=== PATIENT | female | born 2000 | race Caucasian/White ===

== ENCOUNTER 2023-07-25 17:55 | Emergency (ER) | payer OTHER, SELFPAY ==
--- NOTE | ~2023-07-25 | XR_ITS ---
EXAMINATION: XR FINGER, LEFT CLINICAL INFORMATION: Pain COMPARISON: None available. TECHNIQUE: Three views of the left thumb. FINDINGS: Nondisplaced fracture of the tuft of the distal phalanx of the first digit. No dislocation. No other focal lesion. XR/XR finger LT min 2V IMPRESSION: Nondisplaced fracture of the tuft of the distal phalanx first digit.
[2023-07-25 18:39] VITALS: BP 129/79; PULSE 98; RESP 16; TEMP 36.4; O2SAT 98; BMI 30.7
[2023-07-25 21:30] VITALS: BP 130/78; PULSE 90; RESP 18; TEMP 36.6; O2SAT 98
--- NOTE | 2023-07-25 21:35 | ED.EXTPRO ---
HPI - Extremity Problem General Chief complaint: Extremity Injury, Upper Stated complaint: slammed finger in car door Time Seen by Provider: 07/25/23 21:19 Source: patient and RN notes reviewed Mode of arrival: ambulatory Limitations: no limitations History of Present Illness HPI Narrative: 22 year old right hand dominant female with no significant pmhx presents to the ED for evaluation of left thumb pain after closing her thumb in her car door one week ago. She immediately noted pain/ swelling to the distal left thumb. Over the last week she has had increased pressure along with blood under her left thumb nail. She presents requesting removal of blood. Endorses full ROM of left thumb. Denies numbness/tingling/weakness of the extremity. Denies pain to any other finger/ hand/ wrist. No other concerns. Related Data Previous Rx's ?Medication ?Instructions ?Recorded cephalexin 500 mg capsule 500 mg PO BID 5 days #10 caps 07/25/23 Allergies Allergy/AdvReac Type Severity Reaction Status Date / Time No Known Allergies Allergy Verified 07/25/23 18:41 Review of Systems Review of Systems: Constitutional: No fever, chills, fatigue, night sweats, weight changes ENT/Mouth: No ear pain, hearing loss, nasal congestion, sinus pain, rhinorrhea, sore throat Eyes: No eye pain, swelling, redness, vision changes, discharge Cardio: No chest pain, palpitations, BLUNT, orthopnea, peripheral edema Pulm: No SOB, cough, sputum, wheezing, dyspnea, hemoptysis GI: No nausea, vomiting, hematemesis, abdominal pain, diarrhea, constipation, hematochezia, melena : No irregular bleeding, dysuria, frequency, urgency, hesitancy, hematuria, flank pain, urinary flow changes, urinary incontinence or retention MSK: No back pain, neck pain, joint pain, myalgias, +thumb pain Skin: No lesions, rashes Neuro: No weakness, numbness, paresthesias, LOC, dizziness, headache Psych: No anxiety/panic, depression, SI/HI, AH/VH All other systems reviewed and are negative. [facility] Past Medical History Attestation statement: The following information was validated with the patient. Source: old records reviewed and nursing notes reviewed Physical Exam Vital Signs: Vital Signs: Last Vital Signs Temp 98 F 07/25/23 21:30 Pulse 90 07/25/23 21:30 Resp 18 04/13/24 21:30 BP 130/78 07/25/23 21:30 Pulse Ox 98 07/25/23 21:30 O2 Del Method Room Air 07/25/23 21:30 BMI result Body Mass Index 30.7 Vital signs stable Const: General: cooperative, healthy appearing, comfortable and no acute distress Orientation/consciousness: patient oriented x3 Limitations: no limitations HEENT: Head: Yes normal to inspection, Yes No palpable skull fracture present, Yes normocephalic and Yes atraumatic Eyes: General: appearance normal, both eyes and all related structures Pupils: Equal, round and reactive pupils present Resp: Effort & Inspection: normal respiratory effort and able to speak in complete sentences Cardio: Rate: regular rate Rhythm: regular rhythm Neuro: General: patient oriented x3 Cranial nerves: Yes Equal, round and reactive pupils present Extrem: Other: + refer to image below + subungual hematoma noted to left 1st digit with surrounding swelling. Nail bed intact. Full ROM to left 1st digit intact. Course Course Course Narrative: 2155-- nail trephination of left 1st digit performed. Small amount of blood relieved from under the nail. As 1 week has gone by, a majority of the blood underneath the nail had coagulated. Will place patient on Keflex for infection prophylaxis. Finger splint placed with DIP in extension. Advised patient to keep this on for 2-4 weeks. Patient has remained stable throughout ED visit today. Discussed worrisome signs and symptoms and when to return to the ED. All questions answered at this time. Patient is agreeable with disposition and stable for discharge. Medical Decision Making Medical Decision Making MDM Narrative: 22 year old female with no significant pmhx presents to the ED for evaluation of left thumb pain after closing her thumb in her car door one week ago. Vital signs stable. Afebrile. She is nontoxic-appearing and in no acute distress. Please refer to physical exam portion for findings. Differential diagnosis includes subungual hematoma, fracture, nail bed injury, contusion. Plan for x-rays and re-evaluation. Differential Diagnosis Differential Diagnoses: The differential diagnosis associated with the presentation includes As above Admission/Observation Not indicated Independent Interpretation I performed an independent interpretation of an: Plain X-Ray Interpretation: On x-ray there is fracture of the distal left 1st digit, agree with radiologist's interpretation. Radiology Impression Discussion of test interpretation with radiology: I have reviewed the radiologist's reading. Radiologist Impression: EXAMINATION: XR FINGER, LEFT CLINICAL INFORMATION: Pain COMPARISON: None available. TECHNIQUE: Three views of the left thumb. FINDINGS: Nondisplaced fracture of the tuft of the distal phalanx of the first digit. No dislocation. No other focal lesion. XR/XR finger LT min 2V IMPRESSION: Nondisplaced fracture of the tuft of the distal phalanx first digit. Prescription Management I considered prescription management with: Pain Medication and Antibiotic (Keflex) Procedures Nail Trephination Time out: Yes Location (finger): left and thumb Sterile prep: betadine Method of drainage: nail cautery Procedure successful: Yes Patient tolerated procedure: No Complications Orthopedic Splinting/Casting Injury #1: Side: left Upper Extremity Injury Location: finger (thumb) Upper Extremity Immobilizer: finger (other) Discharge Plan Discharge Clinical Impression: Subungual hematoma of finger, Closed fracture of tuft of distal phalanx of finger Patient Disposition: Home, Self-Care Instructions: Finger Fracture (ED), Splint Care (ED) Additional Instructions: You were seen in the ED for crush injury to your left thumb. As discussed, xrays show a nondisplaced fracture of the tuft of the distal phalanx first digit (fracture of the tip of your finger). The hematoma of your nail was drained. You were provided with a finger splint. Keep this clean, dry, and intact. Keep this applied for 2-4 weeks to aid in healing. Keflex is an antibiotic that has been sent to your pharmacy. Take this over the next 5 days to prevent infection. You may take Tylenol and ibuprofen at home for pain/discomfort. Follow up with PCP. If you do not have a PCP, a referral has been provided to you. You may call them to make an appointment. Return to the ED with new or worsening symptoms. In the case of an emergency call 911. Prescriptions: New cephalexin 500 mg capsule 500 mg PO BID 5 Days Qty: 10 0RF Referrals: [facility] [place] Family Medicine [Provider Group] [facility] [place] [facility] [Provider Group] [facility] [place] [facility] [Provider Group] Stand Alone Forms: Work/School Release
[2023-07-25 22:01] VITALS: BP 128/76; PULSE 86; RESP 18; TEMP 36.6; O2SAT 98
== END 2023-07-25 22:02 | disposition home or self-care (01) ==
LOC: HO.ED 21:56
PROVIDERS: Emergency Provider Emergency Medicine
DX: S62.522A Displaced fracture of distal phalanx of left thumb, initial encounter for closed fracture (principal); S60.012A Contusion of left thumb without damage to nail, initial encounter; M79.642 Pain in left hand; Y29.XXXA Contact with blunt object, undetermined intent, initial encounter; Y93.89 Activity, other specified; Y92.810 Car as the place of occurrence of the external cause; Y99.8 Other external cause status
CPT/HCPCS: 29130; 73140; 99283; 99284

== ENCOUNTER 2025-02-17 15:43 | Emergency (ER) | payer SELFPAY ==
--- NOTE | ~2025-02-17 | CT_ITS ---
CLINICAL HISTORY: right lower molar pain CT soft tissue neck with contrast Comparison: None provided Findings: The visualized intracranial contents are unremarkable. No prevertebral fluid. Epiglottis is within normal limits. Pharyngeal mucosal space and parapharyngeal fat are normal. Diffuse inflammatory changes along the submental and right submandibular spaces, with subcutaneous reticulation and fluid stranding thickening of the platysma bilaterally. Diffuse cervical lymphadenopathy is likely reactive. Asymmetric edema in the right submandibular gland suggesting sialadenitis no obstructing stone identified. No suspicious thyroid nodules. No consolidation at the lung apices. No acute fractures. Minimal periapical lucency noted in the right mandibular 3rd molar tooth in keeping with periodontal disease. IMPRESSION: 1. Small odontogenic abscess right mandibular 3rd molar tooth. 2. Right-sided submandibular sialadenitis with regional inflammatory changes throughout the submental and submandibular spaces of the neck. 3. Reactive cervical lymphadenopathy. This document has been electronically signed by: Homer Vigil MD on 02/17/2025 19:57:04
[2025-02-17 15:56] VITALS: BP 129/80; PULSE 97; RESP 16; TEMP 36.6; O2SAT 99; BMI 39.8
--- NOTE | 2025-02-17 15:59 | ED.GENADULT ---
HPI - General Adult General Chief complaint: Dental/Oral Stated complaint: ?Tooth infection/R sided facial swelling Time Seen by Provider: 02/17/25 17:20 History of Present Illness HPI narrative: Patient is a 24-year-old female with a history of having lower molar pain. Ongoing for days. Worse on the right lower molar area. Patient went to see a dentist 2 days ago. Only moderate amount of pain at that time. Patient's pain has worsened. Claims that now she has a hard time eating due to the pain in her molar area. Had some swelling to the lower jaw. Came to the ED for help. No difficulty breathing. No difficulty with her voice. Pain on swallowing. Related Data Previous Rx's ?Medication ?Instructions ?Recorded cephalexin 500 mg capsule 500 mg PO BID 5 days #10 caps 07/25/23 amoxicillin 875 mg-potassium 1 tab PO BID 7 days #14 tabs 02/17/25 clavulanate 125 mg tablet ibuprofen 400 mg tablet 400 mg PO Q6H PRN pain #20 tabs 02/17/25 oxycodone 5 mg tablet 5 mg PO Q8H PRN pain #7 tabs 02/17/25 Allergies Allergy/AdvReac Type Severity Reaction Status Date / Time No Known Allergies Allergy Verified 02/17/25 16:02 Review of Systems Review of Systems: Positive pain to the right lower molar area PMFSH Past Medical History Attestation statement: The following information was validated with the patient. Social History Social History Smoked in Last 30 Days: No Use of substances other than those prescribed or required for medical reasons: Yes Substance Use Type: Marijuana Substance Use Frequency: Occasionally Advance Directives: No Advance Directives Information Provided: No Physical Exam ED Exam Exam: Appearance: Alert. Oriented X3. No acute distress. Eyes: Pupils equal, round and reactive to light. ENT: Pharynx normal. Posterior pharynx is normal. There is mild swelling to the angle of the right mandible. Mild tenderness to palpation. There is no fluctuance noted on palpation. No cavities noted. The floor of the mouth was soft. The upper jaw was normal. Neck: Normal inspection. Neck supple. No lymph nodes noted. No crepitus CVS: Normal heart rate and rhythm. Pulses normal. Normal S1 and S2 Respiratory: No respiratory distress. Breath sounds normal. No Wheezing. No rales Abdomen: Soft and nontender. No rigidity. No distention. good BS x4 Skin: Skin warm and dry. Normal skin color. Normal skin turgor. Extremities: No lower extremity edema. Neurovascular intact to all extremities. No Lacerations. No Rash Neuro: Oriented X 3. No motor deficit. No sensory deficit. Moving all extermities. No slurred speech Vital Signs: Vital Signs - 24 hr 02/17/25 15:56 Temperature 97.9 F Pulse Rate 97 Respiratory Rate 16 Blood Pressure 129/80 Pulse Oximetry 99 Oxygen Delivery Method Room Air BMI result Body Mass Index 39.8 Course Course Course Narrative: This is an RME: Additional HPI, ROS, PE not included below will be deferred to primary provider. RME assessment and note performed by: Bernadette Montana PA-C This is a 21-mwry-fez-female who presents to the ER with complaints of right sided facial pain and swelling. Patient reports that she developed right lower dental pain 4 days ago, went to a dentist and was told that they could not prescribe anything. She states that the pain is worsening. She states that she is having a hard time eating, she is unable to fully open her jaw secondary to the pain. She does have swelling and induration noted to the right side of her face extending into her right submandibular region, given this, labs, further ER evaluation needed. Medications Administered Discontinued Medications Generic Name Dose Route Start Last Admin Trade Name Freq PRN Reason Stop Dose Admin Dexamethasone Sodium Phosphate 10 mg 02/17/25 17:53 02/17/25 18:13 Dexamethasone Sod Phosphate 10 Mg/Ml Vial IVPUSH 02/17/25 17:54 10 mg ONCE ONE Administration Clindamycin Phosphate 600 mg in 50 mls @ 100 mls/hr 02/17/25 17:53 02/17/25 18:15 Cleocin IV 02/17/25 18:22 100 mls/hr ONCE ONE Administration Iohexol 100 ml 02/17/25 19:01 02/17/25 19:01 Iohexol 350 Mg/Ml 100 Ml Infus..Btl IV 02/17/25 19:02 60 ml ONCE ONE Administration Ketorolac Tromethamine 15 mg 02/17/25 17:53 02/17/25 18:12 Ketorolac Tromethamine 15 Mg/Ml Vial IVPUSH 02/17/25 17:54 15 mg ONCE ONE Administration Medical Decision Making Medical Decision Making [facility] Narrative: Significant swelling to the angle of the right mandible. Mild tenderness to touch. Posterior pharynx appearance normal. There is no airway compromise. CT scan of the neck was done. Positive for having a salivary gland infection and also a molar abscess. Will need dentist to a follow-up with the abscess on the lower molar. Augmentin was prescribed. Patient is also to follow-up with ENT for the salivary gland infection. Currently in stable condition. Differential Diagnosis Differential Diagnoses: The differential diagnosis associated with the presentation includes Abscess, salivary gland infection, airway compromise, Admission/Observation Consideration of admission/observation: Escalation of care including admission/observation considered Lab Data [facility] Lab Attestation statement: I reviewed the patient's lab results. 02/17/25 16:23 02/17/25 16:23 Labs: Lab Results 02/17/25 Range/Units 16:23 WBC 16.9 H (4.8-10.8) X10*3/uL RBC 4.57 (4.20-5.50) X10*6/uL Hgb 12.0 (12.0-16.0) g/dl Hct 37.9 (37.0-47.0) % MCV 82.9 (80.0-98.0) fL MCH 26.3 L (27.0-33.0) pg MCHC 31.7 (31.0-35.0) g/dl RDW 14.5 (11.0-16.0) % Plt Count 478 H (160-400) X10*3/uL MPV 11.4 (9.4-12.3) fL Immature Gran % (Auto) Cancelled Neut % (Auto) Cancelled Lymph % (Auto) Cancelled [place] % (Auto) Cancelled Eos % (Auto) Cancelled Baso % (Auto) Cancelled Lymph # (Auto) Cancelled [place] # (Auto) Cancelled Eos # (Auto) Cancelled Baso # (Auto) Cancelled Abs Immat Gran (auto) Cancelled Absolute Neuts (auto) Cancelled Absolute Nucleated RBC 0.000 (0.0-0.012) X10*3/uL Nucleated RBC % (auto) 0.0 (0.0-0.2) /100WBC Neutrophils % (Manual) 71 (45-73) % Band Neutrophils % 4 (3-5) % Lymphocytes % (Manual) 24 (20-40) % Atypical Lymphs % (Man) 1 (0-6) % Abs Neuts (Manual) 12.7 H (2.0-8.3) X10*3/uL Lymphocytes # (Manual) 4.1 (1.2-4.9) X10*3/uL Atyp Lymphs # (Manual) 0.2 x10*3/uL [place] Cells PRESENT Toxic Vacuolation PRESENT Platelet Estimate INCREASED (NORMAL) Large Platelets PRESENT Plt Morphology Comment NOTED RBC Morphology NORMAL Michael Cells 1+ (0-2) /OIF Schistocytes 1+ (0-2) /OIF ESR 40 H (0-20) MM/HR Sodium 140 (135-145) mmol/L Potassium 4.0 (3.3-5.1) mmol/L Chloride 106 (96-108) mmol/L Carbon Dioxide 24 (22-29) mmol/L Anion Gap 14 (12-20) BUN 9 (9-16) mg/dL Creatinine 0.59 (0.5-1.4) mg/dL Estim Creat Clear Calc 188.1 Estimated GFR > 60 Random Glucose 93 (60-115) mg/dL Calcium 9.3 (8.4-10.2) mg/dL Total Bilirubin 0.5 (0.0-1.0) mg/dL Direct Bilirubin 0.2 (0.0-0.5) mg/dL AST 16 (5-31) U/L ALT 9 (0-31) U/L Alkaline Phosphatase 51 (39-117) U/L C-Reactive Protein 6.39 H (< or = 0.50) mg/dL Total Protein 7.8 (6.5-8.0) g/dL Albumin 4.1 (3.5-5.0) g/dL Beta HCG, Quant < 2 mIU/mL Independent Interpretation I performed an independent interpretation of an: CT Scan Radiology Impression Discussion of test interpretation with radiology: I have reviewed the radiologist's reading. Chronic Conditions History of dental pain Social Determinants Patient?s care significantly limited by Social Determinants of Health including: Problems related to primary support group Discharge Plan Discharge Clinical Impression: Dental abscess, Salivary gland adenitis Patient Disposition: Home, Self-Care Instructions: Dental Abscess (ED), Sialoadenitis (ED) Prescriptions: New amoxicillin-pot clavulanate 875-125 mg tablet 1 tab PO BID 7 Days Qty: 14 0RF oxycodone 5 mg tablet 5 mg PO Q8H PRN (Reason: pain) Qty: 7 0RF Rx Instructions: Partial Fill upon patient request. ibuprofen 400 mg tablet 400 mg PO Q6H PRN (Reason: pain) Qty: 20 0RF No Action cephalexin 500 mg capsule 500 mg PO BID 5 Days Qty: 10 0RF Referrals: your dentist [Other] Referral Note: Please see your dentist as soon as possible Dennys Auguste [Physician, Ear, Nose, Throat] - 02/20/25 Print Language: Setswana
[2025-02-17 16:33] LABS: NRBC Abs Auto 0.000 X10*3/uL (0.0-0.012); NRBC Pct Auto 0.0 /100WBC (0.0-0.2); PLT CLUMP 1
[2025-02-17 16:35] LABS: Hematocrit 37.9 % (37.0-47.0); Hemoglobin 12.0 g/dl (12.0-16.0); Mean Corpuscular HGB Conc 31.7 g/dl (31.0-35.0); Mean Corpuscular Hemoglobin 26.3 pg (27.0-33.0); Mean Corpuscular Volume 82.9 fL (80.0-98.0); Red Blood Count 4.57 X10*6/uL (4.20-5.50)
[2025-02-17 16:52] LABS: Alanine Aminotransferase 9 U/L (0-31); Albumin Level 4.1 g/dL (3.5-5.0); Alkaline Phosphatase 51 U/L (39-117); Anion Gap 14 (12-20); Aspartate Amino Transferase 16 U/L (5-31); Blood Urea Nitrogen 9 mg/dL (9-16); Calcium 9.3 mg/dL (8.4-10.2); Carbon Dioxide 24 mmol/L (22-29); Chloride 106 mmol/L (96-108); Creatinine Clr Calc Pharmacy 188.1; Estimated Glomerular Filt Rate > 60; Potassium 4.0 mmol/L (3.3-5.1); Sodium 140 mmol/L (135-145); Total Protein 7.8 g/dL (6.5-8.0)
[2025-02-17 17:08] LABS: WBC ABN SCTR FOR CBC 1
[2025-02-17 17:09] LABS: Erythrocyte Sedimentation Rate 40 MM/HR (0-20)
[2025-02-17 17:17] LABS: Atypical Lymphs Percent Manual 1 % (0-6); Band Neutrophils Percent 4 % (3-5); Lymphocytes Percent Manual 24 % (20-40); Neutrophils Percent Manual 71 % (45-73)
[2025-02-17 17:19] LABS: Burr Cells 1+ (0-2) /OIF; Large Platelet PRESENT; RBC Morphology NORMAL; Schistocytes 1+ (0-2) /OIF
[2025-02-17 17:20] LABS: Smudge Cells PRESENT; Toxic Vacuolation PRESENT
[2025-02-17 17:21] LABS: Atypical Lymph Absolute Manual 0.2 x10*3/uL; Lymphocytes Absolute Manual 4.1 X10*3/uL (1.2-4.9); Neutrophils Absolute Manual 12.7 X10*3/uL (2.0-8.3); Platelet Count 478 X10*3/uL (160-400); White Blood Count 16.9 X10*3/uL (4.8-10.8)
[2025-02-17] MEDS: iohexoL 350 MG/ML 100 ML INFUS..BTL IV (19:01)
[2025-02-17 20:22] VITALS: BP 129/80; PULSE 97; RESP 16; TEMP 36.6; O2SAT 99
== END 2025-02-17 20:23 | disposition home or self-care (01) ==
PROVIDERS: Physician Assistant Medical; Emergency Provider Emergency Medicine Emergency Medical Services
DX: K04.7 Periapical abscess without sinus (principal); K11.20 Sialoadenitis, unspecified; M54.2 Cervicalgia; R68.84 Jaw pain; R07.0 Pain in throat; R10.20 Pelvic and perineal pain unspecified side; Z79.899 Other long term (current) drug therapy
CPT/HCPCS: 36415; 70491; 80048; 80076; 84702; 85007; 85025; 85027; 85652; 86140; 96365; 96375; 99284; J0736; J1100; J1885; Q9967

== ENCOUNTER → 2025-02-17 17:52 | Outpatient (BNV) | payer SELFPAY | PROVIDERS: Emergency Provider Emergency Medicine Emergency Medical Services; Visit Provider Radiology Diagnostic Radiology | DX: K12.2 Cellulitis and abscess of mouth (principal); K11.20 Sialoadenitis, unspecified; R59.0 Localized enlarged lymph nodes | CPT/HCPCS: 70491 ==